=== PATIENT | male | born 1965 | race African-American/Black ===

== ENCOUNTER 2016-09-07 09:18 | Emergency (ER) | payer MEDICAID ==
[2016-09-07] MEDS ORDERED: NS 1,000 ML IV ONE ×2 (09:22→10:26)
[2016-09-07] MEDS ORDERED: LORazepam 2 MG/ML INJ IVP ONE (09:22)
--- NOTE | 2016-09-07 09:25 | EDPHY ---
H & P Time Seen by Provider: 09/07/16 09:23 HPI/ROS: CHIEF COMPLAINT: Seizure HISTORY OF PRESENT ILLNESS: 50-year-old male presents to the emergency department by ambulance after having witnessed seizure at a grocery store in [place] just prior to arrival. The patient apparently has a history of seizures. He tells me that these are related to alcohol withdrawal. He last drank yesterday. Does not take any prescribed medication for anything. Apparently per EMS, witnesses state that the patient stated that he was not feeling well and he lowered himself down to the ground and became extremely diaphoretic. Upon EMS arrival, the patient was confused consistent with postictal state. He has cleared more now that he has come to the emergency department. He denies headache. Denies chest pain or difficulty breathing. Denies abdominal pain. Denies headache. Denies injury to upper or lower extremities. REVIEW OF SYSTEMS: Constitutional: No fever, no chills. Eyes: No double or blurry vision. ENT: No sore throat. Respiratory: No cough, no shortness of breath. Cardiac: No chest pain. Gastrointestinal: No abdominal pain, vomiting or diarrhea. Genitourinary: No dysuria. Musculoskeletal: No neck or back pain. Skin: No rashes. Neurological: No headache. Past Medical/Surgical History: Alcoholism, alcohol withdrawal seizures Social History: Single Smoking Status: Current every day smoker Physical Exam: General Appearance: Alert, no distress. Eyes: Pupils equal and round. Extraocular motions are all intact. ENT: Mouth: Mucous membranes moist. Abrasion right side of tongue. No suturable laceration noted. Respiratory: No wheezing, rhonchi, or rales, lungs are clear to auscultation. Cardiovascular: Regular rate and rhythm. Gastrointestinal: Abdomen is soft and nontender, no masses, no rebound or guarding, bowel sounds normal. Neurological: Alert and oriented x 2, patient is confused daytime, cranial nerves II through XII grossly intact Skin: Warm and dry, no rashes. Musculoskeletal: Nontender to palpate along the cervical, thoracic or lumbar spine. Neck is supple. Extremities: Full range of motion and no peripheral edema. Psychiatric: No agitation Constitutional: Initial Vital Signs Heart Rate 108 H 09/07/16 09:36 Respiratory Rate 18 09/07/16 09:36 Blood Pressure 147/81 H 09/07/16 09:36 O2 Sat (%) 92 09/07/16 09:36 O2 Delivery Mode Room Air Allergies/Adverse Reactions: No Known Allergies Allergy (Unverified 10/08/14 16:51) Home Medications: Medication Instructions Recorded DAPTOmycin [Cubicin 500mg vial (*)] 450 mg IV DAILY #0 vial 10/24/14 Doxycycline Hyclate [Vibramycin 100 mg PO BID #84 capsule 10/24/14 100 MG (*)] Folic Acid [Folic Acid 1 MG (*)] 1 mg PO DAILY #0 tab 10/24/14 Multivitamins [Multivitamin (*)] 1 each PO DAILY #0 tab 10/24/14 Thiamine HCl [Vitamin B-1] 100 mg PO DAILY #0 tab 10/24/14 Medical Decision Making ED Course/Re-evaluation: 50-year-old male presents to the emergency department after having a witnessed seizure. The patient has alcohol withdrawal related seizures. He was given IV normal saline as well as IV Ativan. He was observed for several hours in the emergency department had no recurring seizure activity. His mentation improved throughout his stay. He was eating and drinking normally. The case was discussed with Dr. Melanie Lane, secondary supervising physician, who did not directly evaluate the patient but agrees with treatment and plan. She does not feel that he requires repeat chemistries you with CO2 of less than 5 since he is tolerating p.o. fluids, he received 2 L of IV normal saline and is eating and drinking normally now. Differential Diagnosis: Seizure including but not limited to electrolyte abnormality, alcohol withdrawal , medication noncompliance, head injury, and breakthrough seizure. - Data Points Laboratory Results: Laboratory Results 09/07/16 09:26 09/07/16 09:26 09/07/16 09/07/16 09:26 09:26 WBC 6.10 10^3/uL 10^3/uL (3.80-9.50) RBC 4.84 10^6/uL 10^6/uL (4.40-6.38) Hgb 17.0 g/dL g/dL (13.7-17.5) Hct 51.4 % H % (40.0-51.0) MCV 106.2 fL H fL (81.5-99.8) MCH 35.1 pg H pg (27.9-34.1) MCHC 33.1 g/dL g/dL (32.4-36.7) RDW 13.2 % % (11.5-15.2) Plt Count 178 10^3/uL 10^3/uL (150-400) MPV 9.9 fL fL (8.7-11.7) Neut % (Auto) 24.6 % L % (39.3-74.2) Lymph % (Auto) 57.9 % H % (15.0-45.0) [place] % (Auto) 15.7 % H % (4.5-13.0) Eos % (Auto) 0.8 % % (0.6-7.6) Baso % (Auto) 0.8 % % (0.3-1.7) Nucleat RBC Rel Count 0.0 % % (0.0-0.2) Absolute Neuts (auto) 1.50 10^3/uL L 10^3/uL (1.70-6.50) Absolute Lymphs (auto) 3.53 10^3/uL H 10^3/uL (1.00-3.00) Absolute Monos (auto) 0.96 10^3/uL H 10^3/uL (0.30-0.80) Absolute Eos (auto) 0.05 10^3/uL 10^3/uL (0.03-0.40) Absolute Basos (auto) 0.05 10^3/uL 10^3/uL (0.02-0.10) Absolute Nucleated RBC 0.00 10^3/uL 10^3/uL (0-0.01) Immature Gran % 0.2 % % (0.0-1.1) Immature Gran # 0.01 10^3/uL 10^3/uL (0.00-0.10) Sodium 144 mEq/L mEq/L (134-144) Potassium 3.9 mEq/L mEq/L (3.5-5.2) Chloride 100 mEq/L mEq/L (97-110) Carbon Dioxide < 5 mEq/l L* mEq/l (22-31) Anion Gap TNP BUN 8 mg/dL mg/dL (7-23) Creatinine 1.1 mg/dL mg/dL (0.7-1.3) Estimated GFR > 60 Glucose 140 mg/dL H mg/dL (70-100) Calcium 11.3 mg/dL H mg/dL (8.5-10.4) Phosphorus 5.7 mg/dL H mg/dL (2.5-4.5) Medications Given: Discontinued Medications Sodium Chloride (Ns) 1,000 mls @ 0 mls/hr IV ONCE ONE PRN Reason: Wide Open Stop: 09/07/16 09:23 Last Admin: 09/07/16 09:35 Dose: 1,000 mls Sodium Chloride (Ns) 1,000 mls @ 0 mls/hr IV ONCE ONE PRN Reason: Wide Open Stop: 09/07/16 10:27 Last Admin: 09/07/16 10:30 Dose: 1,000 mls Lorazepam (Ativan Injection) 1 mg IVP EDNOW ONE Stop: 09/07/16 09:23 Last Admin: 09/07/16 09:35 Dose: 1 mg Departure - Departure Disposition: Home, Routine, Self-Care Clinical Impression: Alcohol withdrawal seizure Qualifiers: Complication of substance-induced condition: uncomplicated Qualified Code(s): F10.230 - Alcohol dependence with withdrawal, uncomplicated Condition: Good Instructions: Nonepileptic Seizures (ED), Alcohol Withdrawal (ED) Additional Instructions: You should not drink alcohol in excess. You should [facility] the [facility]. Referrals: [facility] [Outside] - As per Instructions
[2016-09-07 09:33] LABS: % IMMATURE GRANULYOCYTES 0.2 % (0.0-1.1); ABSOLUTE IMMATURE GRANULOCYTES 0.01 10^3/uL (0.00-0.10); ADD DIFF? NO; ADD MORPH? NO; ADD SCAN? NO; ATYPICAL LYMPHOCYTE FLAG 0 (0-99); FRAGMENT RBC FLAG 0 (0-99); HEMATOCRIT 51.4 % (40.0-51.0); LEFT SHIFT FLG 0 (0-99); LIPEMIA HEMOLYSIS FLAG 80 (0-99); MEAN CELL HEMOGLOBIN 35.1 pg (27.9-34.1); MEAN CELL HEMOGLOBIN CONCENTR. 33.1 g/dL (32.4-36.7); MEAN CELL VOLUME 106.2 fL (81.5-99.8); MEAN PLATELET VOLUME 9.9 fL (8.7-11.7); PLATELET CLUMPS FLAG 0 (0-99); PLATELET COUNT 178 10^3/uL (150-400); RED BLOOD CELL COUNT 4.84 10^6/uL (4.40-6.38); RED CELL DISTRIBUTION WIDTH 13.2 % (11.5-15.2)
[2016-09-07 09:48] LABS: CALCIUM 11.3 mg/dL (8.5-10.4); CHLORIDE 100 mEq/L (97-110); CREATININE 1.1 mg/dL (0.7-1.3); GLOMERULAR FILTRATION RATE > 60; GLUCOSE 140 mg/dL (70-100); POTASSIUM 3.9 mEq/L (3.5-5.2); SODIUM 144 mEq/L (134-144)
[2016-09-07 09:49] VITALS: TEMP 98.1
[2016-09-07 09:54] LABS: CARBON DIOXIDE < 5 mEq/l (22-31)
[2016-09-07 11:53] VITALS: RESP 16; O2SAT 95
[2016-09-07 13:11] VITALS: BP 140/90; PULSE 80
== END 2016-09-07 13:00 | disposition home or self-care (01) ==
LOC: EDUNIT#
DX: G40.909 Epilepsy, unspecified, not intractable, without status epilepticus (principal); F10.230 Alcohol dependence with withdrawal, uncomplicated; F17.200 Nicotine dependence, unspecified, uncomplicated; R41.0 Disorientation, unspecified
CPT/HCPCS: 96374; J2060

== ENCOUNTER → 2017-06-11 | Outpatient (CLI) | payer MEDICAID | LOC: FIMAGING 11:52 | PROVIDERS: ATTEND Internal Medicine | DX: M25.512 Pain in left shoulder (principal); R93.8 Abnormal findings on diagnostic imaging of other specified body structures; M19.012 Primary osteoarthritis, left shoulder; M75.82 Other shoulder lesions, left shoulder; W19.XXXD Unspecified fall, subsequent encounter ==

== ENCOUNTER 2018-08-11 13:58 | Emergency (ER) | payer OTHER, MEDICAID | END 2018-08-11 16:04 | disposition home or self-care (01) ==